=== PATIENT | female | born 1970 | race Caucasian/White ===

== ENCOUNTER 2017-07-07 06:55 | Day surgery (SDC) | payer OTHER ==
[2017-07-07] MEDS ORDERED: LIDOCAINE HCL 1% MPF SOL ONE (07:05)
[2017-07-07] MEDS ORDERED: PROPOFOL 500 MG/50 ML EMU IV ONE ×2 (07:05→08:52)
[2017-07-07] MEDS ORDERED: FENTANYL 100MCG/2ML SOL ONE (08:32)
[2017-07-07 09:14] VITALS: O2SAT 98
[2017-07-07 09:35] VITALS: BP 126/74; PULSE 54; RESP 18; TEMP 97.4
== END 2017-07-07 09:51 | disposition home or self-care (01) | DRG 378 ==
LOC: SURG 06:55
PROVIDERS: ATTEND Surgery
DX: K62.5 Hemorrhage of anus and rectum (principal); K22.10 Ulcer of esophagus without bleeding; K57.30 Diverticulosis of large intestine without perforation or abscess without bleeding; K44.9 Diaphragmatic hernia without obstruction or gangrene
CPT/HCPCS: 99001; J3010; J2001; J2704